=== PATIENT | male | born 1995 | race Caucasian/White ===

== ENCOUNTER 2023-12-27 13:11 | Emergency (ER) | payer OTHER ==
[~2023-12-27] VITALS: Ht 188 cm; Wt 82.1 kg
[2023-12-27] MEDS ORDERED: IBUP-1955 PO (13:21)
--- NOTE | 2023-12-27 16:07 | NUR ---
Patient discharged to home in stable condition. Written and verbal after care instructions given. Patient verbalizes understanding of instructions. Stressed follow up or return to ER for worsening s/s. Splint applied and verbalized his understanding the usage of
[2023-12-27 16:08] VITALS: BP 120/71; O2SAT 99
== END 2023-12-27 16:09 | disposition home or self-care (01) ==
LOC: ER 13:11
DX: S63.591A Other specified sprain of right wrist, initial encounter (principal); Z79.1 Long term (current) use of non-steroidal anti-inflammatories (NSAID); W22.8XXA Striking against or struck by other objects, initial encounter; Y93.89 Activity, other specified; Y92.89 Other specified places as the place of occurrence of the external cause; Y99.8 Other external cause status
CPT/HCPCS: 73110; A4606; A4663